=== PATIENT | male | born 1950 | race Caucasian/White ===

== ENCOUNTER 2024-08-02 12:36 | Outpatient (CLI) | payer MEDICARE, SELFPAY ==
[2024-08-02 12:55] LABS: Basophils Absolute Auto 0.07 K/mm3 (0.00-0.10); Basophils Percent Auto 0.7 % (0.0-1.0); Eosinophils Absolute Auto 0.11 K/mm3 (0.02-0.50); Eosinophils Percent Auto 1.1 % (1.0-6.0); Hematocrit 46.7 % (37.0-46.0); Hemoglobin 16.7 g/dL (12.4-15.3); Immature Granulocyte Absolute 0.04 K/mm3 (0.00-0.00); Immature Granulocyte Percent A 0.4 % (0.0-0.0); Lymphocytes Absolute Auto 1.53 K/mm3 (1.10-4.50); Lymphocytes Percent Auto 14.9 % (18.0-42.0); Mean Corpuscular HGB Conc 35.8 g/dL (32-36); Mean Corpuscular Volume 95.1 fL (78.0-102.0); Mean Platelet Volume 9.4 fl (8.7-11.0); Monocytes Absolute Auto 0.78 K/mm3 (0.10-0.90); Monocytes Percent Auto 7.6 % (2.0-11.0); Neutrophils Absolute Auto 7.72 K/mm3 (1.70-7.20); Neutrophils Percent Auto 75.3 % (50.0-70.0); Platelet Count Result 257 K/mm3 (150-420); Red Blood Count 4.91 M/mm3 (4.70-6.10); Red Cell Distribution Width 13.2 % (11.6-14.4); White Blood Count 10.3 K/mm3 (4.8-10.8)
[2024-08-02 13:03] LABS: Hemoglobin A1C 5.4 % (<5.7)
[2024-08-02 13:44] LABS: Alanine Aminotransferase 46 U/L (16-63); Albumin Level 3.8 g/dL (3.4-5.0); Alkaline Phosphatase 100 U/L (46-116); Anion Gap 6 mmol/L (4-12); Aspartate Amino Transferase 25 U/L (15-37); Bilirubin,Total 2.3 mg/dL (0.00-1.00); Blood Urea Nitrogen 13 mg/dL (7-18); Calcium 8.7 mg/dL (8.5-10.1); Carbon Dioxide 31 mmol/L (21-32); Chloride 100 mmol/L (98-108); Cholesterol 157 mg/dL (0-200); Estimated Glomerular Filt Rate > 60; Glucose 92 mg/dL (70-99); Osmolality Calculated 284 mOsm/kg (285-295); Potassium 4.7 mmol/L (3.5-5.1); Sodium 137 mmol/L (136-145); Thyroid Stimulating Hormone 2.65 uIU/mL (0.36-3.74); Total Protein 6.8 g/dL (6.4-8.2); Triglycerides 60 mg/dL (0-150)
[2024-08-02 13:55] LABS: HDL Direct 43 mg/dL (40-60); LDL Cholesterol Calculated 102 mg/dL (<130)
[2024-08-02 16:30] LABS: Add Urine Microscopic? NO; Appearance Urine Clear (Clear); Bilirubin Urine Negative (Negative); Blood Urine Negative (Negative); Color Urine Yellow (Yellow); Glucose Urine UA Negative (Negative); Ketones Urine Negative (Negative); Leukocyte Esterase Ur Negative (Negative); Nitrate Urine Negative (Negative); Protein Urine Negative (Negative); Specific Grav Ur >= 1.030 (1.010-1.020); Urobilinogen Urine 0.2 mg/dL (0.2-1.0)
[2024-08-02 16:51] LABS: Prostate Specific Antigen < 0.1 ng/mL (< OR = 4.0)
== END 2024-08-02 12:37 | disposition home or self-care (01) ==
PROVIDERS: PCP Family Medicine; Visit Provider Family Medicine
DX: R35.1 Nocturia (principal); Z80.52 Family history of malignant neoplasm of bladder; R73.09 Other abnormal glucose; E78.5 Hyperlipidemia, unspecified; Z12.5 Encounter for screening for malignant neoplasm of prostate
CPT/HCPCS: 36415; 80053; 80061; 81003; 83036; 84153; 84443; 85025; G0103

== ENCOUNTER 2024-08-09 09:18 | Outpatient (CLI) | payer MEDICARE, SELFPAY ==
[2024-08-09 09:31] LABS: Basophils Absolute Auto 0.09 K/mm3 (0.00-0.10); Basophils Percent Auto 1.7 % (0.0-1.0); Eosinophils Absolute Auto 0.14 K/mm3 (0.02-0.50); Eosinophils Percent Auto 2.6 % (1.0-6.0); Hemoglobin 16.1 g/dL (12.4-15.3); Immature Granulocyte Absolute 0.02 K/mm3 (0.00-0.00); Immature Granulocyte Percent A 0.4 % (0.0-0.0); Immature Reticulocyte Fraction 8.2 % (2.0-16.52); Lymphocytes Absolute Auto 1.37 K/mm3 (1.10-4.50); Lymphocytes Percent Auto 25.7 % (18.0-42.0); Mean Corpuscular Hemoglobin 32.9 pg (27.0-31.0); Mean Corpuscular Volume 94.1 fL (78.0-102.0); Mean Platelet Volume 9.4 fl (8.7-11.0); Monocytes Absolute Auto 0.48 K/mm3 (0.10-0.90); Neutrophils Absolute Auto 3.23 K/mm3 (1.70-7.20); Neutrophils Percent Auto 60.6 % (50.0-70.0); Platelet Count Result 252 K/mm3 (150-420); Red Blood Count 4.89 M/mm3 (4.70-6.10); Red Cell Distribution Width 12.7 % (11.6-14.4); Reticulocyte Hemoglobin Conten 37.7 pg (28.0-35.0); Reticulocytes Absolute 0.07 M/mm3 (0.02-0.10); White Blood Count 5.3 K/mm3 (4.8-10.8)
[2024-08-09 11:06] LABS: Alanine Aminotransferase 26 U/L (16-63); Albumin Level 3.6 g/dL (3.4-5.0); Alkaline Phosphatase 98 U/L (46-116); Aspartate Amino Transferase 14 U/L (15-37); Bilirubin Direct 0.2 mg/dL (0-0.2); Bilirubin,Total 1.4 mg/dL (0.00-1.00); Total Protein 7.2 g/dL (6.4-8.2)
== END 2024-08-09 09:19 | disposition home or self-care (01) ==
LOC: CHSLAB 09:19
PROVIDERS: PCP Family Medicine; Visit Provider Family Medicine
DX: E80.6 Other disorders of bilirubin metabolism (principal)
CPT/HCPCS: 36415; 80076; 85025; 85046

== ENCOUNTER 2025-08-17 13:37 | Emergency (ER) | payer MEDICARE, SELFPAY ==
--- OUTSIDE RECORDS SUMMARY | 2024-12-17 09:30 | XMS_ITS ---
Author Organization [facility] Billing Info Address [address] [facility] [place] [address] Care Team Providers Care Welder Fabricator Name Role Phone TAYA JONES Primary Care Provider ALEN NGUYEN Unavailable [phone] Allergies No Known Allergies REASON FOR VISIT shredded filler hopper feeder to establish - just getting established Medications Medication SIG (Take, Route, Frequency, Duration) Notes Start Date End Date Status Dutasteride 0.5 MG 1 capsule Orally Onc e a day Active Atorvastatin Calcium 20 MG 1 tablet Oral ly Once a day Active Lisinopril 5 MG 2 tablets Orally Onc e a day Active Social History Tobacco Use: Social History Observation Description Date Details (start date - stop date) Never Smoker NA - NA Tobacco Status: Question Answer Notes Patient is a never smoker non tobacco user Problems Problem Type SNOMED Code ICD Code Onset Dates Problem Status W/U Status Risk Notes Problem [id number] Primary hypertension (I10) Active confirmed Problem [id number] Benign prostatic hyperplasia with lower urinary tract symptoms (N40.1) Active confirmed Problem 554919883 Nocturia (R35.1) Active confirmed Problem [id number] Dyslipidemia (E78.5) Active confirmed Vital Signs Height 70 in 12/17/2024 Weight 195 lbs 12/17/2024 BMI 27.98 kg/m2 12/17/2024 Blood pressure systolic 110 mm Hg 12/17/19 25 Blood pressure diastolic 70 mm Hg 025 Temperature 97.8 degrees Fahrenheit 12/17/19 25 Heart Rate 84 /min 12/17/2024 Respiratory Rate 18 /min 12/17/2024 Oximetry 95 12/17/2024 Encounters Encounter Location Date Provider Diagnosis [id number] [address] [place], [place] [id number] 12/17/2024 ALEN NGUYEN Essential hypertension I10 ; Skin lesion L98.9 ; Dyslipidemia E78.5 ; Nocturia R35.1 ; Benign prostatic hyperplasia with lower urinary tract symptoms N40.1 ; Decreased hearing of both ears H91.93 ; Wears hearing aid Z97.4 and Overweight (BMI 25.0-29.9) E66.3 Assessments Encounter Date Diagnosis (ICD Code) Assessment Notes Treatment Notes Treatment Clinical Notes Section Notes 12/17/2024 Essential hypertension (ICD-10 - I10) At the time of evaluation patient is hemodynamically stable. Patient advised to consume a low-salt diet, exercise, limit red meat intake, deli meats, and eat home cookd meals. Patient also encouraged to check home blood pressure values and contact the office if persistently elevated. Continue home medication lisinopril 5mg 1 tab PO daily 12/17/2024 Skin lesion (ICD-10 - L98.9) Clinical exam revealed multiple 3 mm X 3 mm light brown macules on forehead. He states he follows with a machine operator helper in [place] and has been undergoing cryo therapy for removal. He states he removes about 10-15 macules/papules. Patient recommended to continue following up with machine operator helper and if required referral may be sent to a local machine operator helper. Patient stated he will follow-up with a machine operator helper locally and will contact the machine operator helper office on his own. 12/17/2024 Dyslipidemia (ICD-10 - E78.5) Patient states he underwent lipid panel and 2023 which was found to be unremarkable.Patien t to continue current management with atorvastatin. Follow-up annual labs. Records request was sent to his doctor in [place]. Patient signed necessary documents. 12/17/2024 Nocturia (ICD-10 - R35.1) Symptoms well-managed on current medication. Will continue to monitor 12/17/2024 Benign prostatic hyperplasia with lower urinary tract symptoms (ICD-10 - N40.1) Patient stated his nausea symptoms with managed adequately with current medication. Patient to continue home medication. 12/17/2024 Decreased hearing of both ears (ICD-10 - H91.93) Patient stated he has had been followed for decreased hearing acuity by [facility]. He has been using hearing aids for the past 5 years without difficulty. Will continue to monitor. 12/17/2024 Wears hearing aid (ICD-10 - Z97.4) Patient did not bring hearing aids to visit. He states he uses only as needed for special occasions. Otherwise his hearing is quite stable. Will continue to monitor. 12/17/2024 Overweight (BMI 25.0-29.9) (ICD-10 - E66.3) Healthy balanced diet is recommended, avoid processed carbohydrates and fried meals, avoid sodas. Exercise regularly at least 3 times a week as tolerable. Will continue to monitor with annual checks Plan Of Treatment Treatment Notes Assessment Notes Essential hypertension At the time of evaluation patient is hemodynamically stable. Patient advised to consume a low-salt diet, exercise, limit red meat intake, deli meats, and eat home cookd meals. Patient also encouraged to check home blood pressure values and contact the office if persistently elevated. Continue home medication lisinopril 5mg 1 tab PO daily Skin lesion Clinical exam reveal ed multiple 3 mm X 3 mm light brown macules on forehead. He states he follows with a machine operator helper in [place] and has been undergoing cryo therapy for removal. He states he removes about 10-15 macules/papules. Patient recommended to continue following up with machine operator helper and if required referral may be sent to a local machine operator helper. Patient stated he will follow-up with a machine operator helper locally and will contact the machine operator helper office on his own. Dyslipidemia Patient states he un derwent lipid panel and 2023 which was found to be unremarkable.Patient to continue current management with atorvastatin. Follow-up annual labs. Records request was sent to his doctor in [place]. Patient signed necessary documents. Nocturia Symptoms well-manage d on current medication. Will continue to monitor Benign prostatic hyperplasia with lower urinary tract symptoms Patient stated his nausea symptoms with managed adequately with current medication. Patient to continue home medication. Decreased hearing of both ears Patient s tated he has had been followed for decreased hearing acuity by [facility]. He has been using hearing aids for the past 5 years without difficulty. Will continue to monitor. Wears hearing aid Patient did not brin g hearing aids to visit. He states he uses only as needed for special occasions. Otherwise his hearing is quite stable. Will continue to monitor. Overweight (BMI 25.0-29.9) Healthy fabiola chiquis diet is recommended, avoid processed carbohydrates and fried meals, avoid sodas. Exercise regularly at least 3 times a week as tolerable. Will continue to monitor with annual checks Next Appt Details Follow Up: 1 year, Reason: Provider Name:DEDE LOUIE , 01/06/2026 10:00:00 AM, [address], [place], [place], [id number], Procedure Notes * Category Sub-Category Detail Notes Supervision of Care Documentation of Supervision Patient seen and examined with resident, MARITZA AGUSTIN 12/17/2024 03:18:42 PM EST > Supervising Provider I have met with the patient and participated with the plan of care., MARITZA AGUSTIN 12/17/2024 03:18:47 PM EST > Preceptor Notes ALEN NGUYEN 12/17/2024 03:46:05 PM EST >, Patient seen by me and presented to attending listed above Progress Notes * Chinmay IYERDOB:1950 (74 yo M)Acc No.[id number]:12/17/2024 PROGRESS NOTE Patient: Chinmay IYER Appointment Provider: Mikie NGUYEN MD :1950 A ge:74 Y S ex:Male Supervising Provider:MARITZA AGUSTIN MD Date:12/17/2024 C #:[id number] Address:[address] [place] [address], [facility] Pcp:TAYA JONES Subjective: * Chief Complaints: * N p to establish - just getting established * HPI: F irst Point of Contact Screening: Do any of the following apply to you? N ew rash or open sores N o F ever and/or chills in the past 7 days N o C ough N o M uscle or body aches (other than from an injury) N o S ore throat N o I n the past 3 weeks, have you or a close contact traveled outside the [facility] and you are now ill? N o 74-year-old male with a past medical history hypertension, hyperlipidemia, decreased hearing acuity requiring hearing aids bilaterally and BPH presents to establish care in our clinic today. He states his primary care provider is Dr. Andrew Thompson in [place], [place]. He states he splits his time between both dates. He has been living in the [facility] for the past 9 years and states he wants to establish care locally. At the time of evaluation he endorses no complaints. He states he does have a history of recurrent skin lesions primarily on the forehead that requires removal. He follows with a machine operator helper in [place] but does not know the provider's name. He stated he undergoes a type of cryotherapy for removal. He had a colonoscopy last year that was found to be within normal limits. The patient stated he is up-to-date with all his vaccinations including the flu vaccin, pneumococcal vaccine, and shingles vaccine. Records request was signed and will be sent to his primary care provider. He states he has a blood pressure monitoring cuff at home but has not used it in the past year. D epression Screening: PHQ-2 (2015 Edition) L ittle interest or pleasure in doing things??Not at all F eeling down, depressed, or hopeless? N ot at all T otal Score 0 * ROS: G eneral ROS: Constitutional: N o fever, weight changes, or fatigue. Patient denies feeling unwell. D ermatology/Integumentary: N o rashes, lesions, or itching. H EENT: B rown lesions on forehead. No headaches or head injuries. No vision changes, pain, or discharge. . R nichole/Pulmonology: N o cough, shortness of breath, or wheezing. C ardiology: N o chest pain, palpitations, edema, or claudication. G astroenterology: N o abdominal pain, nausea, vomiting, diarrhea, constipation, or dysphagia. G enital/Urinary: N o dysuria, hematuria, frequency, urgency, or incontinence. M usculoskeletal: N o joint pain, stiffness, swelling, or muscle pain. N eurology: N o headaches, dizziness, numbness, tingling, or seizures. P sychology: N o depression, anxiety, insomnia, or changes in mood. H em/Lymph: N o easy bruising or lymphadenopathy. E ndocrinology: N o heat or cold intolerance, polyuria, or polydipsia. I mmunologic: N o allergies or frequent infections reported. ? * Medical History: * Surgical History: G allbladder 1979Right Elbow - broken 1954 * Hospitalization/Major Diagno stic Procedure: D enies Past Hospitalization * Family History: M other: , head injury due to a fall. F ather: , bladder cancer. no family hx of colon cancer. * Social History: A lcohol Use Patient d oes not use alcohol T obacco Status Patient is a never smoker non tobacco user * Medications: T akingAtorvastatin Calcium 20 MG Tablet 1 tablet Orally Once a day Dutasteride 0.5 MG Capsule 1 capsule Orally Once a day Lisinopril 5 MG Tablet 2 tablets Orally Once a day Medication List reviewed and reconciled with the patientTaking Atorvastatin Calcium 20 MG Tablet 1 tablet Orally Once a day Taking Dutasteride 0.5 MG Capsule 1 capsule Orally Once a day Taking Lisinopril 5 MG Tablet 2 tablets Orally Once a day Medication List reviewed and reconciled with the patient * Allergies: N .K.A.no[Allergies Verified] Objective: * Vitals: H t: 70 in, Ht-cm: 177.8 cm, Wt: 195 lbs, Wt-k.45 kg, BMI:27.98, Body Surface Area: 2.09, BP:110/70, Temp:97.8F, HR:84, Respiratory Rate:18, Oxygen sat %:95, Pain scale: 0. * Examination: G eneral Examination: Constitutional: a lert, NAD, pleasant, well developed and well nourished, cooperative . Derm/Integumentary: n ormal, no rash. HEENT: u nremarkable. Neck: s upple, no lymphadenopathy. Respiratory: c lear to auscultation bilaterally, no wheezes/rhonchi/rales. Heart: n o murmurs, regular rate and rhythm. Chest: n ormal shape and expansion. Gastrointestinal: n o masses palpated, no hepatosplenomegaly. Rectal: n o tenderness, no masses, normal sphincter tone, normal prostate. Musculoskeletal: n ormal, no edema, cyanosis, clubbing.? Face: L ight brown-colored 3 mm X 3 mm macules on forehead.? Joints: n o significant abnormalities noted. ? Assessment: * Assessment: 1. E ssential hypertension - I10 (Primary) 2 . S kin lesion - L98.9 ? 3 . D yslipidemia - E78.5 4 . N octuria - R35.1 5 .?Benign prostatic hyperplasia with lower urinary tract symptoms - N40.1 6 . Decreased hearing of both ears - H91.93 7 . W ears hearing aid - Z97.4 ? 8 . O verweight (BMI 25.0-29.9) - E66.3 Plan: * Treatment: 2. S kin lesion Notes: Clinical exam revealed multiple 3 mm X 3 mm light brown macules on forehead. He states he follows with a machine operator helper in [place] and has been undergoing cryo therapy for removal. He states he removes about 10-15 macules/papules. Patient recommended to continue following up with machine operator helper and if required referral may be sent to a local machine operator helper. Patient stated he will follow-up with a machine operator helper locally and will contact the machine operator helper office on his own. 3. D yslipidemia Notes: Patient states he underwent lipid panel and 2023 which was found to be unremarkable.Patient to continue current management with atorvastatin. Follow-up annual labs. Records request was sent to his doctor in [place]. Patient signed necessary documents. 4. N octuria Notes: Symptoms well-managed on current medication. Will continue to monitor 5. B enign prostatic hyperplasia with lower urinary tract symptoms Notes: Patient stated his nausea symptoms with managed adequately with current medication. Patient to continue home medication. 6. D ecreased hearing of both ears Notes: Patient stated he has had been followed for decreased hearing acuity by primary [place]. He has been using hearing aids for the past 5 years without difficulty. Will continue to monitor. 7. W ears hearing aid Notes: Patient did not bring hearing aids to visit. He states he uses only as needed for special occasions. Otherwise his hearing is quite stable. Will continue to monitor. 8. O verweight (BMI 25.0-29.9) Notes: Healthy balanced diet is recommended, avoid processed carbohydrates and fried meals, avoid sodas. Exercise regularly at least 3 times a week as tolerable. Will continue to monitor with annual checks * Procedures: S upervision of Care: Documentation of Supervision P atient seen and examined with resident, MARITZA AGUSTIN 12/17/2024 03:18:42 PM EST >. Supervising Provider I have met with the patient and participated with the plan of care., MARITZA AGUSTIN 12/17/2024 03:18:47 PM EST >. Preceptor Notes B ALEN REYNOSO 12/17/2024 03:46:05 PM EST >, Patient seen by me and presented to attending listed above. * Procedure Codes: 1 126F AMNT PAIN NOTED NONE [id number] STATUS [id number] MED LIST DOCD IN RCRD * Preventive Medicine: Laurel Bloomery PAF (Patient Assessment Form): F all Risk Assessment Date Screening Completed: 0 12/17/2024 Increased Fall Risk factors: N o fall risk factors History Falls in Past Year: N o falls in the past year A mbulatory Status Patient: i s independent C olorectal Cancer Screening (45-75 y/o) Colonoscopy Date (Every 10 years): 0 06/06/2024 no polyps D epression Screening PHQ 2 Smart Form: C ompleted I mmunizations Influenza Vaccine: 1 11/25/2023 Quality Measures: W eight Assessment Above Normal BMI Follow-Up L ifestyle education regarding diet * Follow Up: 1 year * Care Plan Details* Review Notes: MARITZA AGUSTIN 2024-12-25 14:37:14* Sign off status: Completed true * Appointment Provider: Mikie NGUYEN MD Date: 0 12/17/2024 Generated for Printing/Faxing/eTransmitting on: 1 03:05 PM EDT History and Physical Notes * HPI (History of Present Illness) Category Sub-Category Detail Notes Category Not es Depression Screening PHQ-2 (2015 Edition) Little interest or pleasure in doing things?: Not at all Feeling down, depressed, or hopeless?: N ot at all Total Score: 0 First Point of Contact Screening Do any of the following apply to you? New rash or open sores: No 74-year-old male with a past medical history hypertension, hyperlipidemia, decreased hearing acuity requiring hearing aids bilaterally and BPH presents to establish care in our clinic today. He states his primary care provider is Dr. Andrew Thompson in [place], [place]. He states he splits his time between both dates. He has been living in the [facility] for the past 9 years and states he wants to establish care locally. At the time of evaluation he endorses no complaints. He states he does have a history of recurrent skin lesions primarily on the forehead that requires removal. He follows with a machine operator helper in [place] but does not know the provider's name. He stated he undergoes a type of cryotherapy for removal. He had a colonoscopy last year that was found to be within normal limits. The patient stated he is up-to-date with all his vaccinations including the flu vaccin, pneumococcal vaccine, and shingles vaccine. Records request was signed and will be sent to his primary care provider. He states he has a blood pressure monitoring cuff at home but has not used it in the past year. Fever and/or chills in the past 7 days: No Cough: No Muscle or body aches (other than from an injury): No Sore throat: No In the past 3 weeks, have yo u or a close contact traveled outside the [facility] and you are now ill? : No Examination Category Sub-Category Detail Notes Category Not es General Examination HEENT: unremarkable Neck: supple, no lymphaden opathy Heart: no murmurs, regular rate and rhythm Respiratory: clear to auscultatio n bilaterally, no wheezes/rhonchi/rales Gastrointestinal: no masses palpated, no hepatosplenomegaly Constitutional: alert, NAD, pleasant , well developed and well nourished, cooperative Derm/Integumentary: normal, no rash Chest: normal shape and exp ansion Musculoskeletal: normal, no edema, cy anosis, clubbing Rectal: no tenderness, no ma sses, normal sphincter tone, normal prostate Face: Light brown-colored 3 mm X 3 mm macules on forehead Joints: no significant abnor malities noted
--- NOTE | ~2025-08-17 | CT_ITS ---
EXAMINATION: CT abdomen pelvis wo con, 08/17/2025 14:00 CDT HISTORY: left flank pain x1 hour COMPARISON: No comparisons available. TECHNIQUE: CT scan of the abdomen and pelvis was performed without IV contrast. One or more of the following dose reduction techniques were used: automated exposure control, adjustment of the mA and/or kV according to patient size, use of iterative reconstruction technique. Unless otherwise stated, incidental findings do not require dedicated follow up imaging FINDINGS: CT abdomen: LUNG BASES: The lung bases are clear. The visualized portions of the heart and pericardium are unremarkable. LIVER: Unremarkable, liver contours intact, no lesions. SPLEEN: Unremarkable, no splenomegaly. KIDNEYS: Right Kidney: Unremarkable. No calculi. No hydronephrosis. Left Kidney: Left kidney left hydronephrosis and hydroureter due to an obstructing proximal ureteral calculus measuring 2 x 4 x 4 mm. ADRENAL GLANDS: Unremarkable. PANCREAS: Unremarkable. GALLBLADDER/BILIARY: Post cholecystectomy. STOMACH AND ESOPHAGUS: Visualized stomach and esophagus within normal limits. BOWEL/MESENTERY: Moderate fecal content. Moderate diverticulosis. No colitis or acute diverticulitis. Appendix normal. Mesentery normal. Small bowel normal. ADENOPATHY/RETROPERITONEUM: No lymphadenopathy. AORTA/VASCULATURE: Normal caliber aorta. FREE FLUID OR FREE AIR: None. CT pelvis: SOLID ORGANS/REPRODUCTIVE: Unremarkable. BLADDER: Within normal limits. OSSEOUS STRUCTURES: No acute osseous abnormality.No suspicious lesions. OVERLYING SOFT TISSUES: Unremarkable. IMPRESSION: 1. Left-sided obstructive uropathy Reviewed, dictated and finalized at location P.
[2025-08-17 13:37] VITALS: BP 122/86; PULSE 80; RESP 20; TEMP 36.7; O2SAT 99
--- NOTE | 2025-08-17 13:42 | ED_ITS ---
HPI - Abdominal Pain General Chief Complaint: Urogenital-Male Stated Complaint: left flank pain Time Seen by Provider: 08/17/25 13:42 Source: patient Mode of arrival: ambulatory Limitations: no limitations History of Present Illness HPI narrative: Patient is a 74-year-old male with left flank pain that had about a 1 hour period of severe pain in the left flank that has resolved at this time. Associated nausea without vomiting. He was headed to go hargilling and came back due to the pain. He had kidney stones 15 years ago in the past. MD elicited complaint: flank pain (Left) Pertinent past history: kidney stones Onset (ago): hour(s) (1) Pain Consistency: constant and now resolved Location: L flank Severity: moderate Pain scale (0-10): 7 Quality: cramping, stabbing and sharp Radiation: none Migration to: no migration Exacerbating factors: nothing Relieving factors: nothing Context: confirms history of similar episodes Associated symptoms: nausea Treatments prior to arrival: other (None) Related Data Allergies Allergy/AdvReac Type Severity Reaction Status Date / Time No Known Allergies Allergy Verified 08/17/25 14:41 Review of Systems 2 Review of Systems: All systems reviewed & are unremarkable except as noted in HPI and below Constitutional: Constitutional: Reports no additional constitutional complaints Eyes: Eyes: Reports no additional eye complaints ENT: Reports system reviewed and no additional complaints, except as documented Cardiovascular: Cardiovascular: Reports no additional cardiovascular complaints Respiratory: Respiratory: Reports no additional respiratory complaints Gastrointestinal: Gastrointestinal: Reports no additional gastrointestinal complaints Genitourinary: Genitourinary: Reports no additional male genitourinary complaints Musculoskeletal: Musculoskeletal: Reports no additional musculoskeletal complaints Integumentary/Breasts: Skin/Breast: Reports system reviewed and no additional complaints, except as docu Neurologic: Reports system reviewed and no additional complaints, except as documented Psychiatric: Psychiatric: Reports no additional psychiatric complaints Endocrine: Endocrine: Reports no additional endocrine complaints Hematologic/Lymphatic: Hematologic/Lymphatic: Reports no additional hematologic/lymphatic complaints Allergic/Immunologic: Allergic/Immunologic: Reports no additional allergic/immunologic complaints PMFSH Social History Social History Smoking status: Never smoker Exam 2 Const: General: healthy appearing Nutritional Appearance: well nourished Orientation/consciousness: patient oriented x3 HENMT: Head: normal to inspection Ears: external ears normal F ken/Nose/Sinus: Normal external nose present Eyes: Conjunctivae: conjunctivae normal Pupils: Equal, round and reactive pupils present EOM: EOMs intact bilaterally Neck: Neck: normal visual inspection Chest: Chest palpation & inspection: normal inspection of the chest Resp: Effort & Inspection: normal respiratory effort and not labored A uscultation: clear to auscultation bilaterally and no crackles Cardio: Rate: regular rate Rhythm: regular rhythm Heart sounds: no murmurs GI: Inspection: non-distended GI Palp: Yes Soft to palpation and No Tenderness to palpation present (GI) Auscultation: normal bowel sounds : General: Yes bladder normal to palpation Back/Spine/Pelvis: Back: no CVA tenderness Skin: General skin exam: normal color Rashes: no rashes Wounds: no wounds Neuro: General: patient oriented x3, moves all extremities and no meningeal signs Extrem: General: normal to inspection Psych: Mental Status: mental status grossly normal Affect: normal affect Attitude: cooperative Course Vital Signs Vital signs: Vital Signs Temperature 36.7 C 08/17/25 13:37 Pulse Rate 80 08/17/25 13:37 Respiratory Rate 20 08/17/25 13:37 Blood Pressure 122/86 08/17/25 13:37 Pulse Oximetry 99 08/17/25 13:37 Oxygen Delivery Room Air 08/17/25 13:37 Temperature 36.7 C 08/17/25 13:37 Pulse Rate 74 08/17/25 15:16 Respiratory Rate 20 08/17/25 15:16 Blood Pressure 129/87 08/17/25 15:16 Pulse Oximetry 99 08/17/25 15:16 Oxygen Delivery Room Air 08/17/25 15:16 MDM - Abdominal Pain MDM Narrative Medical decision making narrative: Patient is a 74-year-old male with left flank pain for the past hour and it is now resolved. We will do a kidney stone workup. Patient is obstructed kidney stone on the left and he wishes to get this repaired at this time. Urology agrees. We will transfer patient [facility]. Patient wishes to go POV and that is acceptable at this time. Patient is safe for POV. Lab Data Attestation: I reviewed the patient's lab results. 08/17/25 14:12 08/17/25 14:12 Labs: Lab Results 08/17/25 08/17/25 Range/Units 13:57 14:12 WBC 6.2 (4.8-10.8) K/mm3 RBC 4.71 (4.70-6.10) M/mm3 Hgb 15.8 H (12.4-15.3) g/dL Hct 45.0 (37.0-46.0) % MCV 95.5 (78.0-102.0) fL MCH 33.5 H (27.0-31.0) pg MCHC 35.1 (32-36) g/dL RDW 12.9 (11.6-14.4) % Plt Count 219 (150-420) K/mm3 MPV 9.5 (8.7-11.0) fl Immature Gran % (Auto) 0.3 H (0.0-0.0) % Neut % (Auto) 64.1 (50.0-70.0) % Lymph % (Auto) 22.9 (18.0-42.0) % [place] % (Auto) 10.3 (2.0-11.0) % Eos % (Auto) 1.1 (1.0-6.0) % Baso % (Auto) 1.3 H (0.0-1.0) % Lymph # (Auto) 1.42 (1.10-4.50) K/mm3 [place] # (Auto) 0.64 (0.10-0.90) K/mm3 Eos # (Auto) 0.07 (0.02-0.50) K/mm3 Baso # (Auto) 0.08 (0.00-0.10) K/mm3 Abs Immat Gran (auto) 0.02 H (0.00-0.00) K/mm3 Absolute Neuts (auto) 3.97 (1.70-7.20) K/mm3 Absolute Nucleated RBC 0.00 (0.00-0.00) K/mm3 Nucleated RBC % 0.0 (0-0.0) % PT 11.4 (9.50-12.1) Seconds INR 1.0 APTT 24.5 (23.9-30.70) Sec Sodium 138 (137-145) mmol/L Potassium 4.4 (3.4-5.0) mmol/L Chloride 101 (98-107) mmol/L Carbon Dioxide 30 (22-30) mmol/L Anion Gap 7 (4-12) mmol/L BUN 12 (9-20) mg/dL Creatinine 0.90 (0.7-1.3) mg/dL Estim Creat Clear Calc 65 ml/min Estimated GFR > 60 (59 - ) Glucose 107 (65-110) mg/dL Calculated Osmolality 285 (285-295) mOsm/kg Calcium 9.1 (8.4-10.2) mg/dL Total Bilirubin 1.8 H (0.2-1.3) mg/dL AST 27 (17-59) U/L ALT 22 (6-50) U/L Alkaline Phosphatase 62 (38-126) U/L Total Protein 7.7 (6.3-8.2) g/dL Albumin 4.3 (3.5-5.1) g/dL Lipase 53 (23-300) U/L Urine Color Yellow (Yellow) Urine Appearance Clear (Clear) Urine pH 5.5 (5.0-8.0) Ur Specific [place] 1.025 H (1.010-1.020) Urine Protein Trace H (Negative) Urine Glucose (UA) Negative (Negative) Urine Ketones Trace H (Negative) Ur Blood (Man) 3+ H (Negative) Urine Nitrate Negative (Negative) Urine Bilirubin Negative (Negative) Urine Urobilinogen 1.0 (0.2-1.0) mg/dL Leukocyte Esterase Rfl Negative (Negative) MADISYN/UL Urine RBC 21-50 H (0-2) /hpf Urine WBC 0-3 (0-3) /hpf Urine Bacteria Trace (None) /hpf Urine Mucus Few H /lpf Imaging Data Attestation: I personally reviewed and interpreted this imaging study as follows: Radiologist's impression: ITS Impressions Abdomen/Pelvis CT 08/17/25 14:27 IMPRESSION: 1. Left-sided obstructive uropathy Discharge Plan Discharge Clinical Impression: Left ureteral calculus Patient Disposition: Acute Care Hospital Condition: Stable Patient Language: Sinhala Prescriptions: No Action diphenoxylate-atropine [Lomotil] 2.5-0.025 mg tablet 1 tablet PO QID PRN (Reason: diarrhea) Qty: 10 0RF tamsulosin 0.4 mg capsule 0.4 mg PO DAILY Qty: 90 0RF dutasteride 0.5 mg capsule See Rx Instructions .ROUTE .COMPLEX Qty: 30 0RF Dose Instruction: Take 1 capsule by mouth once daily Rx Instructions: Take 1 capsule by mouth once daily lisinopril 5 mg tablet See Rx Instructions .ROUTE .COMPLEX Qty: 30 0RF Dose Instruction: Take 1 tablet by mouth once daily Rx Instructions: Take 1 tablet by mouth once daily atorvastatin 20 mg tablet See Rx Instructions .ROUTE .COMPLEX Qty: 30 0RF Dose Instruction: Take 1 tablet by mouth once daily Rx Instructions: Take 1 tablet by mouth once daily Follow-up/Referrals: Chaya Cormier MD [Primary Care Provider, Internal Medicine] Time of Disposition: 15:23
[2025-08-17 14:03] LABS: Add Urine Microscopic? YES; Appearance Urine Clear (Clear); Glucose Urine UA Negative (Negative); Leukocyte Esterase Ur Negative LEU/UL (Negative); Nitrate Urine Negative (Negative); Specific Grav Ur 1.025 (1.010-1.020)
--- OUTSIDE RECORDS SUMMARY | 2025-08-17 14:06 | XMS_ITS | Patient Health Record ---
Author Organization [facility] Billing Info Address [address] [place] [address] [place] [address] Care Team Providers Care Rack Washer Name Role Phone TAYA JONES Primary Care Provider PATRICK, SUSHY Unavailable [phone] Allergies No Known Allergies Reason For Referral No Information Medications Medication SIG (Take, Route, Frequency, Duration) Notes Start Date End Date Status Dutasteride 0.5 MG 1 capsule Orally Onc e a day Active Atorvastatin Calcium 20 MG 1 tablet Oral ly Once a day Active Lisinopril 5 MG 2 tablets Orally Onc e a day Active Immunizations Vaccine Route Administration Date Status Comme nts zCOVID-19 (Moderna) 12+yrs, NO PRES Unknown 11/20/2020 Administered zCOVID-19 (Moderna) 12+yrs, NO PRES Unknown 12/18/2020 Administered FLU 3V (FLUAD TRI), 65yrs+, NO PRES - ALL PAYORS Unknown 09/24/2024 Administered Social History Tobacco Use: Social History Observation Description Date Details (start date - stop date) Never Smoker NA - NA Tobacco Status: Question Answer Notes Patient is a never smoker non tobacco user Problems Problem Type SNOMED Code ICD Code Onset Dates Problem Status W/U Status Risk Notes Problem 201439435 Nocturia (R35.1) Active confirmed Problem 6854437363892 Benign prostatic hyperplasia with lower urinary tract symptoms (N40.1) Active confirmed Problem 540266734 Dyslipidemia (E78.5) Active confirmed Problem 26035269 Primary hypertension (I10) Active confirmed Vital Signs Heart Rate 84 /min 12/17/2024 Temperature 97.8 degrees Fahrenheit 12/17/2024 Respiratory Rate 18 /min 12/17/2024 Oximetry 95 12/17/2024 Blood pressure diastolic 70 mm Hg 12/17/2024 Height 70 in 12/17/2024 Blood pressure systolic 110 mm Hg 12/17/2024 Weight 195 lbs 12/17/2024 BMI 27.98 kg/m2 12/17/2024 Encounters Encounter Location Date Provider Diagnosis [id number] [address] [place], [place] [id number] 12/17/2024 ALEN NGUYEN Essential hypertension I10 ; [...] forehead. He states he follows with a dough cutter in [place] and has been undergoing cryo therapy for removal. He states he removes about 10-15 macules/papules. Patient recommended to continue following up with dough cutter and if required referral may be sent to a local dough cutter. Patient stated he will follow-up with a dough cutter locally and will contact the dough cutter office on his own. 12/17/2024 Dyslipidemia (ICD-10 - E78.5) Patient states he underwent lipid panel and 2023 which was found to be unremarkable.Patien t to continue current management with atorvastatin. Follow-up annual labs. Records request was sent to his doctor in [place]. Patient signed necessary documents. 12/17/2024 Nocturia (ICD-10 [...] followed for decreased hearing acuity by primary [place]. He has been using hearing aids for [...] monitor with annual checks Plan Of Treatment Next Appt Details Provider Name:DEDE LOUIE , 01/06/2026 10:00:00 AM, [address], [address], [place], [place], [id number], Insurance Providers Payer Name Payer Address Payer Phone Subscriber Number Group Number Insured Name Patient Relationship to Insured Coverage Start Date Coverage End Date MEDICARE [place] PART B [address] [facility] [place] RIKKI CULP [id number] Chinmay Hogue Self - patient is the insured [facility] MEDICARE [facility] [place] [address] [place], [place] [id number] Chinmay Hogue Self - patient is the insured Medical (General) History Medical History History ICD Code Hypertension Hyperlipidemia BPH Surgical History Surgery Date(Month/Year) Right Elbow - broken 1954 Gallbladder 1979
[2025-08-17 14:17] LABS: Hematocrit 45.0 % (37.0-46.0); Hemoglobin 15.8 g/dL (12.4-15.3); Immature Granulocyte Percent A 0.3 % (0.0-0.0); Lymphocytes Absolute Auto 1.42 K/mm3 (1.10-4.50); Mean Corpuscular HGB Conc 35.1 g/dL (32-36); Mean Corpuscular Hemoglobin 33.5 pg (27.0-31.0); Mean Corpuscular Volume 95.5 fL (78.0-102.0); Nucleated Red Blood Cells Absolute Auto 0.00 K/mm3 (0.00-0.00); Nucleated Red Blood Cells Perc 0.0 % (0-0.0); Platelet Count Result 219 K/mm3 (150-420); Red Blood Count 4.71 M/mm3 (4.70-6.10); White Blood Count 6.2 K/mm3 (4.8-10.8)
[2025-08-17 14:32] LABS: INR 1.0; Partial Thromboplastin Time 24.5 Sec (23.9-30.70); Prothrombin Time 11.4 Seconds (9.50-12.1)
[2025-08-17 14:34] LABS: Alanine Aminotransferase 22 U/L (6-50); Albumin Level 4.3 g/dL (3.5-5.1); Alkaline Phosphatase 62 U/L (38-126); Anion Gap 7 mmol/L (4-12); Aspartate Amino Transferase 27 U/L (17-59); Bilirubin,Total 1.8 mg/dL (0.2-1.3); Blood Urea Nitrogen 12 mg/dL (9-20); Calcium 9.1 mg/dL (8.4-10.2); Carbon Dioxide 30 mmol/L (22-30); Chloride 101 mmol/L (98-107); Estimated CRCL calculation 65 ml/min; Estimated Glomerular Filt Rate > 60; Glucose 107 mg/dL (65-110); Lipase 53 U/L (23-300); Osmolality Calculated 285 mOsm/kg (285-295); Potassium 4.4 mmol/L (3.4-5.0); Sodium 138 mmol/L (137-145); Total Protein 7.7 g/dL (6.3-8.2)
[2025-08-17 15:16] VITALS: BP 129/87; PULSE 74; RESP 20; O2SAT 99
[2025-08-17 16:10] VITALS: BP 154/84; PULSE 75; RESP 20; O2SAT 95
== END 2025-08-17 16:10 | disposition short-term general hospital (02) ==
PROVIDERS: Emergency Provider Emergency Medicine; PCP Internal Medicine
DX: N20.1 Calculus of ureter (principal)
CPT/HCPCS: 36415; 74176; 80053; 81001; 83690; 85025; 85610; 85730; 99284

== ENCOUNTER 2025-08-17 17:38 | Observation (INO) | payer MEDICARE, SELFPAY ==
--- NOTE | ~2025-08-17 | XR_ITS ---
EXAMINATION: XR retrograde pyelo w/stent LT DATE: 08/18/2025 08:21 INDICATION: Left flank pain and left-sided obstructive uropathy TECHNIQUE: 182 images of the abdomen and pelvis were obtained during procedure performed by Dr. Ham. Radiologist was not present for the imaging or procedure. The amount of fluoroscopy time used during this procedure was 1.8 minutes. Total DAP was 2.15 mGym^2. COMPARISON: CT dated 08/17/2025 FINDINGS: The left ureteral stone seen on prior CT is unable to be definitively identified on the distribution operation supervisor images. Subsequent images demonstrate cannulation and retrograde contrast injections into the left ureter and renal collecting system. Subsequent images demonstrate a wire advanced into upper pole calyx of the left kidney which is subsequently replaced by a left intraureteral stent with loops formed in the upper pole calyx. Contrast projecting over the region of the left ureteropelvic junction. IMPRESSION: 1. Fluoroscopy utilized during right ureteral stent placement. The left ureteral stone identified on prior CT is unable be identified and have either been passed, extracted or of insufficient size and attenuation to be visible by fluoroscopy. See procedure note for further detail. 2. Suggestion of small amount of extravasated extraluminal contrast in the region of the left ureteropelvic junction. Reviewed, dictated and finalized at location A. IMPRESSION: 1. Fluoroscopy utilized during right ureteral stent placement. The left uretera l stone identified on prior CT is unable be identified and have either been pas sed, extracted or of insufficient size and attenuation to be visible by fluoros copy. See procedure note for further detail. 2. Suggestion of small amount of extravasated extraluminal contrast in the akua on of the left ureteropelvic junction.
--- NOTE | ~2025-08-17 | CT_ITS ---
Exam: CT abdomen and pelvis without contrast Clinical History: [Evaluate for stone ] Comparison: [CT abdomen and pelvis 08/17/2025]; retrograde pyelogram the left stent 08/18/2025 Technique: Multiple axial CT images of the abdomen and pelvis were obtained without IV contrast. Sagittal and coronal reformatted images were obtained. FINDINGS: Lung bases: [Small to moderate-sized patchy opacities in the lower lungs. ] Liver: [ No mass.] [ No intrahepatic biliary duct dilatation.] Gallbladder: Surgically absent. Common bile duct: [ Normal caliber.] [ No stones.] Spleen: [ Within normal limits.] Pancreas: [ No mass. No pancreatic fluid collection.] Adrenals: [ No masses.] Kidneys: [ No masses. No hydronephrosis.] Left-sided double-J ureteral stent with the proximal loop in the left superior pole calyx and the distal loop in the bladder. Small amount of hyperdense material in the left pelvocalyceal system. Small amount of hyperdense material in the left perinephric space. Small amount of fat stranding about the left ureteral stent. Lymph nodes: [ No adenopathy in the abdomen or pelvis.] Stomach, small bowel and colon: [ No bowel wall thickening or obstruction.] Diverticulosis. Peritoneum cavity: [ No mesenteric fat stranding or fluid.] Bladder: Moderate concentric thickening of the naranjo of the mildly distended bladder. Moderate amount of air in the bladder. Osseous structures: [ No acute fracture or destructive lesion.] [ Multilevel degenerative change in the visualized spine.] Abdominal aorta: [ No aneurysm.] Additional findings: [ None of significance.] IMPRESSION: 1. New left-sided double-J ureteral stent with the proximal loop in the left superior pole calyx and the distal loop in the bladder. 2. Small amount of hyperdense material in the left perinephric space. Differential includes contrast or hemorrhage. Correlate clinically. A short-term follow-up CT study is recommended. 3. Small amount of fat stranding about the left ureter. 4. Moderate concentric thickening of the naranjo of the mildly distended bladder. Differential includes incomplete bladder wall distention versus cystitis. 5. Moderate amount of contrast and air in the bladder. The air in the bladder may be due to recent instrumentation. Cystitis is possible. 6. Diverticulosis. 7. Cholecystectomy. Winter, the nurse taking care of the patient, was notified about the findings on 08/18/2025 at 10:35 AM eastern standard time by Dr. Delgadillo, Read back occurred. Reviewed, dictated and finalized at location Q. IMPRESSION: 1. New left-sided double-J ureteral stent with the proximal loop in the left díaz perior pole calyx and the distal loop in the bladder. 2. Small amount of hyperdense material in the left perinephric space. Different ial includes contrast or hemorrhage. Correlate clinically. A short-term follow- up CT study is recommended. 3. Small amount of fat stranding about the left ureter. 4. Moderate concentric thickening of the naranjo of the mildly distended bladder. Differential includes incomplete bladder wall distention versus cystitis. 5. Moderate amount of contrast and air in the bladder. The air in the bladder m ay be due to recent instrumentation. Cystitis is possible. 6. Diverticulosis. 7. Cholecystectomy. Winter, the nurse taking care of the patient, was notified about the findings on 08/18/2025 at 10:35 AM eastern standard time by Dr. Delgadillo, Read back occurred.
[2025-08-17 17:33] VITALS: BMI 28.0
--- NOTE | 2025-08-17 17:33 | ADMGEN ---
This patient, MANDI KOEHLER, was admitted to 2 Medical Room 261-01. Patient/family oriented to hospital policies and general routines including ID bracelet, bed and alarms, visiting hours, pain management, procedures, bathroom and other care routines, personal items, smoking policy, room service/diet, and visiting hours. Direct admit from [place] Information on how to activate the Rapid Response Team has been discussed. Patient/Family are encouraged to report perceived risks to care and to ask questions if they do not understand what they are told or what they should do.
--- NOTE | 2025-08-17 17:56 | PM.IMHP ---
H&P: HPI History of Present Illness Date/Time: 08/17/25 17:56 PMFSH Family History Family History (Updated 08/17/25 @ 17:43 by Ping Conway RN) Father Bladder cancer Sibling Thyroid cancer Social History Social History Smoking status: Never smoker Second hand tobacco smoke exposure: No Alcohol intake: never Substance use: never Lack of Transportation: No Lack of Food: Never True Current Housing: I Have Housing Concerned About Future Housing: No Difficulty Paying Gas/Electric Bills: No Difficulty Paying for Meds: No Currently Unemployed: No Education: Bachelor's Degree Difficulty w/ Childcare or Family Care: No Spiritual care concerns: No Meds Home Medications and Allergies Home Medications ?Medication ?Instructions ?Recorded ?Confirmed ?Type diphenoxylate-atropine 2.5 1 tablet PO QID PRN diarrhea #10 08/02/24 08/02/24 Rx mg-0.025 mg tablet (Lomotil) tabs tamsulosin 0.4 mg capsule 0.4 mg PO DAILY #90 caps 10/31/24 Rx atorvastatin 20 mg tablet See Rx Instructions .Route 06/13/25 Rx .COMPLEX #30 tabs dutasteride 0.5 mg capsule See Rx Instructions .Route 06/13/25 Rx .COMPLEX #30 caps lisinopril 5 mg tablet See Rx Instructions .Route 06/13/25 Rx .COMPLEX #30 tabs Allergies Allergy/AdvReac Type Severity Reaction Status Date / Time No Known Allergies Allergy Verified 08/17/25 14:41
[2025-08-17 19:35] VITALS: BP 121/77; PULSE 76; RESP 16; TEMP 36.8; O2SAT 98
--- NOTE | 2025-08-17 20:10 | P.HP_ITS ---
H&P: HPI History of Present Illness Date/Time: 08/17/25 20:10 Chief Complaint: Left flank pain, obstructive uropathy due to proximal ureteral stone Narrative: Patient is a 74 year old male presenting for admission under hospitalist care for management of a left-sided kidney stone, with planned urology evaluation tomorrow. Earlier today patient experienced acute onset severe left flank pain lasting about 45 minutes, which prompted evaluation at [facility]. Pain improved spontaneously and he did not require analgesic medications at ER in [place]. He denies current abdominal pain and has minimal to no tenderness with palpation or percussion over the left flank on exam. No dysuria, fever, chills, nausea, or vomiting reported during the encounter. He reports a prior history of kidney stone approximately 15 years ago; otherwise generally healthy. Urology was consulted by phone from ER at [facility] and he advised patient could go home with plan for outpatient follow up but he would most likely end up right back in ER. Urology stated that if patient transferred they would plan to place a stent tomorrow for management of left proximal obstructing ureteral stone without UTI. Past medical history significant for hyperlipidemia, hypertension, and benign prostatic hypertrophy (per patient medication indications). Denies diabetes. Surgical history includes remote gallbladder removal (laparoscopic cholecystectomy) approximately 40 years ago, and prior broken elbow (details not specified). No known drug allergies. He received concurrent COVID and influenza vaccinations approximately 2?3 weeks prior. Plan discussed includes NPO after midnight and IV fluids overnight with Urology consultation and probable procedure tomorrow. Review of Systems Review of Systems: * Constitutional: Denies fever, chills, unintended weight loss. * Eyes: No visual changes reported. * ENT: No sore throat, nasal congestion reported. * Cardiovascular: No chest pain, palpitations, leg swelling. * Respiratory: No shortness of breath, cough; lungs clear to auscultation on brief exam. * Gastrointestinal: Denies current abdominal pain, nausea, vomiting; no reported changes in bowel habits. * Genitourinary: Reports recent severe left flank pain consistent with renal colic; currently improved. Denies dysuria; no hematuria reported in this interview. * Musculoskeletal: Denies joint swelling; history of prior elbow fracture (remote). * Skin: Denies rashes, cuts, wounds, or signs of infection. * Neurologic: No focal deficits reported; no headache, dizziness. * Endocrine: Denies history of diabetes. * Hematologic/Lymphatic: No easy bruising or bleeding reported. * Allergic/Immunologic: No known drug allergies. * Psychiatric: Mood and affect appropriate; no acute concerns reported. All systems reviewed & are unremarkable except as noted in HPI and below PMFSH Family History Family History Father Bladder cancer Sibling Thyroid cancer Social History Social History Smoking status: Never smoker Second hand tobacco smoke exposure: No Alcohol intake: never Substance use: never Lack of Transportation: No Lack of Food: Never True Current Housing: I Have Housing Concerned About Future Housing: No Difficulty Paying Gas/Electric Bills: No Difficulty Paying for Meds: No Currently Unemployed: No Education: Bachelor's Degree Difficulty w/ Childcare or Family Care: No Spiritual care concerns: No Meds Home Medications and Allergies Home Medications ?Medication ?Instructions ?Recorded ?Confirmed ?Type diphenoxylate-atropine 2.5 1 tablet PO QID PRN diarrhe a #10 08/02/24 08/17/25 Rx mg-0.025 mg tablet (Lomotil) tabs Held on 08/17/25. Instructions: .Provider Order tamsulosin 0.4 mg capsule 0.4 mg PO DAILY #90 caps 08/17/25 Rx atorvastatin 20 mg tablet See Rx Instructions .Route 0 06/13/25 08/17/25 Rx .COMPLEX #30 tabs lisinopril 5 mg tablet See Rx Instructions .Route 0 06/13/25 08/17/25 Rx .COMPLEX #30 tabs Allergies Allergy/AdvReac Type Severity Reaction Status Date / Time No Known Allergies Allergy Verified 08/17/25 14:41 Vital Signs Vital Signs - 24 hr 08/17/25 19:35 Temperature 36.8 C Pulse Rate 76 Respiratory Rate 16 Blood Pressure 121/77 Pulse Oximetry 98 Exam Narrative: GENERAL: Well-appearing, well-nourished, and in no acute distress. HEAD: Normocephalic, atraumatic. ENT:? Mucous membranes moist. CHEST: Clear to auscultation.? No respiratory distress. HEART: Regular rate and rhythm. ? Normal peripheral pulses. ABDOMEN: Soft, nontender, nondistended. No significant CVA tenderness. EXTREMITIES: Normal range of motion. No peripheral edema. SKIN: Warm dry normal color NEURO: Alert and oriented x3. PSYCH: Normal mood and affect H&P: Results Labs Labs: w Lab Results 08/17/25 08/17/25 Range/Units 13:57 14:12 WBC 6.2 (4.8-10.8) K/mm3 RBC 4.71 (4.70-6.10) M/mm3 Hgb 15.8 H (12.4-15.3) g/dL Hct 45.0 (37.0-46.0) % MCV 95.5 (78.0-102.0) fL MCH 33.5 H (27.0-31.0) pg MCHC 35.1 (32-36) g/dL RDW 12.9 (11.6-14.4) % Plt Count 219 (150-420) K/mm3 MPV 9.5 (8.7-11.0) fl Immature Gran % (Auto) 0.3 H (0.0-0.0) % Neut % (Auto) 64.1 (50.0-70.0) % Lymph % (Auto) 22.9 (18.0-42.0) % [place] % (Auto) 10.3 (2.0-11.0) % Eos % (Auto) 1.1 (1.0-6.0) % Baso % (Auto) 1.3 H (0.0-1.0) % Lymph # (Auto) 1.42 (1.10-4.50) K/mm3 [place] # (Auto) 0.64 (0.10-0.90) K/mm3 Eos # (Auto) 0.07 (0.02-0.50) K/mm3 Baso # (Auto) 0.08 (0.00-0.10) K/mm3 Abs Immat Gran (auto) 0.02 H (0.00-0.00) K/mm3 Absolute Neuts (auto) 3.97 (1.70-7.20) K/mm3 Absolute Nucleated RBC 0.00 (0.00-0.00) K/mm3 Nucleated RBC % 0.0 (0-0.0) % PT 11.4 (9.50-12.1) Seconds INR 1.0 APTT 24.5 (23.9-30.70) Sec Sodium 138 (137-145) mmol/L Potassium 4.4 (3.4-5.0) mmol/L Chloride 101 (98-107) mmol/L Carbon Dioxide 30 (22-30) mmol/L Anion Gap 7 (4-12) mmol/L BUN 12 (9-20) mg/dL Creatinine 0.90 (0.7-1.3) mg/dL Estim Creat Clear Calc 65 ml/min Estimated GFR > 60 (59 - ) Glucose 107 (65-110) mg/dL Calculated Osmolality 285 (285-295) mOsm/kg Calcium 9.1 (8.4-10.2) mg/dL Total Bilirubin 1.8 H (0.2-1.3) mg/dL AST 27 (17-59) U/L ALT 22 (6-50) U/L Alkaline Phosphatase 62 (38-126) U/L Total Protein 7.7 (6.3-8.2) g/dL Albumin 4.3 (3.5-5.1) g/dL Lipase 53 (23-300) U/L Urine Color Yellow (Yellow) Urine Appearance Clear (Clear) Urine pH 5.5 (5.0-8.0) Ur Specific [place] 1.025 H (1.010-1.020) Urine Protein Trace H (Negative) Urine Glucose (UA) Negative (Negative) Urine Ketones Trace H (Negative) Ur Blood (Man) 3+ H (Negative) Urine Nitrate Negative (Negative) Urine Bilirubin Negative (Negative) Urine Urobilinogen 1.0 (0.2-1.0) mg/dL Leukocyte Esterase Rfl Negative (Negative) MADISYN/UL Urine RBC 21-50 H (0-2) /hpf Urine WBC 0-3 (0-3) /hpf Urine Bacteria Trace (None) /hpf Urine Mucus Few H /lpf Pulse Oximetry SpO2 results: 97-98% on room air Attestation: I personally reviewed and interpreted this pulse oximetry as follows: Interpretation: No need for supplemental oxygenation at this time Imaging CT scan - abdomen: Radiologist's impression: EXAMINATION: CT abdomen pelvis wo con, 08/17/2025 14:00 CDT HISTORY: left flank pain x1 hour COMPARISON: No comparisons available. TECHNIQUE: CT scan of the abdomen and pelvis was performed without IV contrast. One or more of the following dose reduction techniques were used: automated exposure control, adjustment of the mA and/or kV according to patient size, use of iterative reconstruction technique. Unless otherwise stated, incidental findings do not require dedicated follow up imaging FINDINGS: CT abdomen: LUNG BASES: The lung bases are clear. The visualized portions of the heart and pericardium are unremarkable. LIVER: Unremarkable, liver contours intact, no lesions. SPLEEN: Unremarkable, no splenomegaly. KIDNEYS: Right Kidney: Unremarkable. No calculi. No hydronephrosis. Left Kidney: Left kidney left hydronephrosis and hydroureter due to an obstructing proximal ureteral calculus measuring 2 x 4 x 4 mm. ADRENAL GLANDS: Unremarkable. PANCREAS: Unremarkable. GALLBLADDER/BILIARY: Post cholecystectomy. STOMACH AND ESOPHAGUS: Visualized stomach and esophagus within normal limits. BOWEL/MESENTERY: Moderate fecal content. Moderate diverticulosis. No colitis or acute diverticulitis. Appendix normal. Mesentery normal. Small bowel normal. ADENOPATHY/RETROPERITONEUM: No lymphadenopathy. AORTA/VASCULATURE: Normal caliber aorta. FREE FLUID OR FREE AIR: None. CT pelvis: SOLID ORGANS/REPRODUCTIVE: Unremarkable. BLADDER: Within normal limits. OSSEOUS STRUCTURES: No acute osseous abnormality.No suspicious lesions. OVERLYING SOFT TISSUES: Unremarkable. IMPRESSION: 1. Left-sided obstructive uropathy Reviewed, dictated and finalized at location P. Assessment and Plan Assessment and plan (1) Left ureteral calculus: Code(s): N20.1 - Calculus of ureter Status: Acute Assessment and Plan: -Obstructing proximal left ureteral stone -Urology consulted by [facility] ER and Dr. Forman indicated that patient would likely bounce back rather than pass stone -Dr. Forman stated they would consult and probably place stent on 08/18 if patient is transferred to [facility] -OBS admit accepted -NPO after midnight with IV fluids ordered -Morning labs ordered -No UTI on labs at prior ER (2) Obstructive uropathy: Code(s): N13.9 - Obstructive and reflux uropathy, unspecified Status: Acute Assessment and Plan: -See above (3) HTN (hypertension): Code(s): I10 - Essential (primary) hypertension Status: Chronic Assessment and Plan: -Blood pressure reasonable, continue home medication (4) HLD (hyperlipidemia): Code(s): E78.5 - Hyperlipidemia, unspecified Status: Chronic Assessment and Plan: -Continue home atorvastatin (5) BPH (benign prostatic hyperplasia): Code(s): N40.0 - Benign prostatic hyperplasia without lower urinary tract symptoms Status: Chronic Assessment and Plan: -Enlarged prostate noted on CT exam -Continue tamsulosin -Urology will consult and see patient on 08/18 Quality VTE Prophylaxis VTE prophylaxis: mechanical ordered If No VTE Prophylaxis Answer both mechanical and pharmacologic: Reason no pharmacologic proph: medical contraindication (Urologic procedure expected 08/18) Hospitalist MIPS Advance Care Plan I have confirmed that the patient's Advanced Care Plan is present, code status is documented, or surrogate decision maker is listed in patient medical record.: Yes Medication Reconciliation I have utilized all available resources to obtain, update and review the patients current medications (includes all prescriptions, OTC, herbals, cannabis, and nutritional supplements).: Yes
[2025-08-17 21:27] VITALS: BP 144/71; PULSE 61; RESP 18; TEMP 36.5; O2SAT 97
[2025-08-17] MEDS: SODIUM CHLORIDE 0.9% IV 1,000 ML 75 ML IV CONT (22:00)
[2025-08-18] VITALS (11 sets, daily range): BP systolic 120–166; BP diastolic 66–83; PULSE 55–76; RESP 12–18; TEMP 36.2–36.6; O2SAT 93–99
[2025-08-18 05:33] LABS: Hematocrit 42.9 % (42.0-52.0); Hemoglobin 15.3 g/dL (14.0-18.0); Immature Granulocyte Percent A 0.5 % (0-0.5); Lymphocytes Absolute Auto 2.30 K/mm3 (0.9-3.2); Mean Corpuscular HGB Conc 35.7 g/dl (32-36); Mean Corpuscular Hemoglobin 33.4 pg (26-34); Mean Corpuscular Volume 93.7 fl (80-100); Nucleated Red Blood Cells Absolute Auto 0.000 K/mm3 (0.0-0.012); Nucleated Red Blood Cells Perc 0.0 % (0.0-0.2); Platelet Count Result 200 k/mm3 (150-375); Red Blood Count 4.58 M/mm3 (4.6-6.20); White Blood Count 6.5 K/mm3 (4.5-10.0)
[2025-08-18 05:55] LABS: Alanine Aminotransferase 17 U/L (6-50); Albumin Level 3.7 g/dL (3.5-5.1); Alkaline Phosphatase 71 U/L (38-126); Anion Gap 7 mmol/L (4-12); Aspartate Amino Transferase 23 U/L (17-59); Bilirubin,Total 1.9 mg/dL (0.2-1.3); Blood Urea Nitrogen 12 mg/dL (9-20); Calcium 8.4 mg/dL (8.4-10.2); Carbon Dioxide 24 mmol/L (22-30); Chloride 105 mmol/L (98-107); Estimated CRCL calculation 77 ml/min; Estimated Glomerular Filt Rate > 60; Glucose 89 mg/dL (65-110); Magnesium 2.3 mg/dL (1.6-2.3); Potassium 4.0 mmol/L (3.4-5.0); Sodium 136 mmol/L (137-145); Total Protein 6.4 g/dL (6.3-8.2)
[2025-08-18] MEDS: LACTATED RINGERS 1,000 ML 30 ML IV CONT (07:00)
--- NOTE | 2025-08-18 07:20 | P.PNAN_ITS ---
Anes - Initial Pre Proc Eval Procedure: Operation Date: 08/18/25 07:30 Proposed Procedures p Cystoscopy Left Stent Placement - Yassine Ham MD Date/Time: 08/18/25 07:20 Surgeon: Sophie Aparicio MD Pre Op Diagnosis: Left kidney stone Patient Data Age: 75 Gender: M Height: 1.78 m Weight: 88.5 kg Last Vital Signs Temp 97.6 F 08/18/25 04:13 Pulse 67 08/18/25 04:13 Resp 18 08/18/25 04:13 BP 124/66 08/18/25 04:13 Pulse Ox 97 08/18/25 04:13 O2 Del Method Room Air 08/17/25 20:00 Allergies Allergy/AdvReac Type Severity Reaction Status Date / Time No Known Allergies Allergy Verified 08/17/25 14:41 Home Medications ?Medication ?Instructions ?Recorded ?Confirmed ?Type diphenoxylate-atropine 2.5 1 tablet PO QID PRN diarrhe a #10 08/02/24 08/17/25 Rx mg-0.025 mg tablet (Lomotil) tabs Held on 08/17/25. Instructions: .Provider Order tamsulosin 0.4 mg capsule 0.4 mg PO DAILY #90 caps 08/17/25 Rx atorvastatin 20 mg tablet See Rx Instructions .Route 0 06/13/25 08/17/25 Rx .COMPLEX #30 tabs lisinopril 5 mg tablet See Rx Instructions .Route 0 06/13/25 08/17/25 Rx .COMPLEX #30 tabs Laboratory Tests 08/18/25 04:44 WBC 6.5 K/mm3 (4.5-10.0) RBC 4.58 L M/mm3 (4.6-6.20) Hgb 15.3 g/dL (14.0-18.0) Hct 42.9 % (42.0-52.0) MCV 93.7 fl (80-100) MCH 33.4 pg (26-34) MCHC 35.7 g/dl (32-36) RDW 13.0 % (11.5-14.5) Plt Count 200 k/mm3 (150-375) MPV 9.9 fl (7.4-10.4) Immature Gran % (Auto) 0.5 % (0-0.5) Neut % (Auto) 51.9 % (45.5-73.1) Lymph % (Auto) 35.3 % (18.3-44.2) [place] % (Auto) 8.6 H % (2.6-8.5) Eos % (Auto) 2.2 % (0-4.4) Baso % (Auto) 1.5 H % (0.2-1.2) Lymph # (Auto) 2.30 K/mm3 (0.9-3.2) [place] # (Auto) 0.6 K/mm3 (0.1-0.6) Eos # (Auto) 0.1 K/mm3 (0-0.3) Baso # (Auto) 0.1 K/mm3 (0.0-0.1) Abs Immat Gran (auto) 0.03 K/mm3 (0.00-0.031) Absolute Neuts (auto) 3.4 K/mm3 (1.3-6.7) Absolute Nucleated RBC 0.000 K/mm3 (0.0-0.012) Nucleated RBC % 0.0 % (0.0-0.2) Sodium 136 L mmol/L (137-145) Potassium 4.0 mmol/L (3.4-5.0) Chloride 105 mmol/L (98-107) Carbon Dioxide 24 mmol/L (22-30) Anion Gap 7 mmol/L (4-12) BUN 12 mg/dL (9-20) Creatinine 0.74 mg/dL (0.7-1.3) Estim Creat Clear Calc 77 ml/min Estimated GFR > 60 (59 - ) Glucose 89 mg/dL (65-110) Calcium 8.4 mg/dL (8.4-10.2) Magnesium 2.3 mg/dL (1.6-2.3) Total Bilirubin 1.9 H mg/dL (0.2-1.3) AST 23 U/L (17-59) ALT 17 U/L (6-50) Alkaline Phosphatase 71 U/L (38-126) Total Protein 6.4 g/dL (6.3-8.2) Albumin 3.7 g/dL (3.5-5.1) Patient hx anesthesia problems: none Family hx anesthesia problems: none Results Review: All pre-operative results and documents have been reviewed as part of the pre- operative evaluation. [facility] Family History Family History Father Bladder cancer Sibling Thyroid cancer Social History Social History Smoking status: Never smoker Second hand tobacco smoke exposure: No Alcohol intake: never Substance use: never Lack of Transportation: No Lack of Food: Never True Current Housing: I Have Housing Concerned About Future Housing: No Difficulty Paying Gas/Electric Bills: No Difficulty Paying for Meds: No Currently Unemployed: No Education: Bachelor's Degree Difficulty w/ Childcare or Family Care: No Spiritual care concerns: No Anes - Eval Final PreProcedure Day of Procedure 08/18/25 07:20 Patient weight: normal Heart: regular rate and rhythm Lungs: clear to auscultation Airway: Mallampati scale class II Neurological: alert and oriented Last oral intake: >/= 8 hours ASA classification: III Emergent: no Anesthetic plan: proceed Anesthesia type and monitoring: general LMA and standard monitoring Results Review: All pre-operative results and documents have been reviewed as part of the pre- operative evaluation. Informed Consent: The patient's anesthetic plan and its attendant risks and benefits were discussed with the patient/family/POA. Questions were solicited and answers provided to the satisfaction of the patient/family/POA.
[2025-08-18] MEDS: ceFAZolin 2 GM in SODIUM CHLORIDE 0.9% IV 50 ML 100 ML IVPB (07:39)
--- NOTE | 2025-08-18 07:39 | P.CONUR_ITS ---
Assessment and Plan Assessment and plan (1) Left ureteral stone: Code(s): N20.1 - Calculus of ureter Status: Acute Assessment and Plan: Cystoscopy, left retrograde pyelogram, left ureteral stent placement. Definitive stone management to follow. We hopefully can try to get something arranged for this week Urology Consult Note HPI Date Seen: 08/18/25 Requesting Physician: Sophie Aparicio MD Primary Care Provider: Chaya Cormier MD Consult Narrative Narrative: Chinmay Phoenix is a 75 year old male with prior history of kidney stones. He has lasted a kidney stone was several decades ago and he passed a stone. He had acute onset left flank pain yesterday while going camping. This prompted a visit to the emergency room. By the time he got to the emergency room the pain is subsided. A CT scan was done which the radiologist read as a 2 x 4 mm left proximal stone. I reviewed the imaging myself in both the axial and coronal views. It appears to be more in the neighborhood of 6 mm. He was transferred to [facility] as the outside hospital had no urology coverage. He will undergo left ureteral stent placement to relieve any obstruction and then plan on definitive stone management in the near future. Hopefully would plan on lithotripsy of stone is visible but ureteroscopy as an option as well. He denies any fevers or chills. He denies any symptoms of urinary tract infection. Denies any nausea vomiting If all goes uncomplicated he can plan on discharge home today Review of Systems 2 Review of Systems: All systems reviewed & are unremarkable except as noted in HPI and below PMFSH Past Medical History Medical History (Updated 08/18/25 @ 07:42 by Yassine Ham MD) Left ureteral calculus Family History Family History Father Bladder cancer Sibling Thyroid cancer Social History Social History Smoking status: Never smoker Second hand tobacco smoke exposure: No Alcohol intake: never Substance use: never Lack of Transportation: No Lack of Food: Never True Current Housing: I Have Housing Concerned About Future Housing: No Difficulty Paying Gas/Electric Bills: No Difficulty Paying for Meds: No Currently Unemployed: No Education: Bachelor's Degree Difficulty w/ Childcare or Family Care: No Spiritual care concerns: No Meds Home Medications and Allergies Home Medications ?Medication ?Instructions ?Recorded ?Confirmed ?Type diphenoxylate-atropine 2.5 1 tablet PO QID PRN diarrhe a #10 08/02/24 08/17/25 Rx mg-0.025 mg tablet (Lomotil) tabs Held on 08/17/25. Instructions: .Provider Order tamsulosin 0.4 mg capsule 0.4 mg PO DAILY #90 caps 08/17/25 Rx atorvastatin 20 mg tablet See Rx Instructions .Route 0 06/13/25 08/17/25 Rx .COMPLEX #30 tabs lisinopril 5 mg tablet See Rx Instructions .Route 0 06/13/25 08/17/25 Rx .COMPLEX #30 tabs Allergies Allergy/AdvReac Type Severity Reaction Status Date / Time No Known Allergies Allergy Verified 08/18/25 07:21 Vital Signs Vital Signs - 24 hr 08/17/25 19:35 08/17/25 20:00 08/17/25 21:27 Temperature 98.2 F 97.7 F Pulse Rate 76 61 Respiratory Rate 16 18 Blood Pressure 121/77 144/71 H Pulse Oximetry 98 97 Oxygen Delivery Room Air 08/18/25 04:13 08/18/25 07:00 Temperature 97.6 F 97.1 F L Pulse Rate 67 66 Respiratory Rate 18 16 Blood Pressure 124/66 139/75 Pulse Oximetry 97 99 Oxygen Delivery Room Air Exam 2 Const: General: cooperative and healthy appearing HENMT: Head: normal to inspection Chest: Chest palpation & inspection: normal inspection of the chest Resp: Effort & Inspection: normal respiratory effort and able to speak in complete sentences Skin: General skin exam: normal color Neuro: General: oriented to person, oriented to place and oriented to time Extrem: General: normal to inspection Psych: Appearance: grossly normal Results Labs 08/18/25 04:44 08/18/25 04:44 Labs: Short CBC 08/18/25 Range/Units 04:44 WBC 6.5 (4.5-10.0) K/mm3 Hgb 15.3 (14.0-18.0) g/dL Hct 42.9 (42.0-52.0) % Plt Count 200 (150-375) k/mm3 BMP 08/18/25 04:44 Sodium 136 L Potassium 4.0 Chloride 105 Carbon Dioxide 24 BUN 12 Creatinine 0.74 Glucose 89 Calcium 8.4 Liver Function 08/18/25 Range/Units 04:44 Total Bilirubin 1.9 H (0.2-1.3) mg/dL AST 23 (17-59) U/L ALT 17 (6-50) U/L Alkaline Phosphatase 71 (38-126) U/L Albumin 3.7 (3.5-5.1) g/dL Imaging My impression: As per history of present illness
--- NOTE | 2025-08-18 07:43 | WPDHPUPDATE1 ---
History and Physical Update Update Date/Time: 08/18/25 07:43 History and Physical has been reviewed, including an updated exam of the patient. There are NO changes in the patient's condition. Risks, benefits, and alternatives have been discussed and questions answered. Patient agrees to proceed with procedure.
--- NOTE | 2025-08-18 08:26 | P.OP_ITS ---
Procedure Note - Detailed Date of Procedure 08/18/25 Pre-op Diagnosis Left ureteral stone Post-op Diagnosis Same Procedure Performed Cystoscopy, left retrograde pyelogram, left ureteroscopy, left stent placed Surgeon Yassine Ham MD Anesthesia General Indications This is a gentleman who was transferred from outside hospital. On CT scan he has a 7.5 mm mid ureteral stone with hydronephrosis. We planned intervention for the stone due to the size. Understands risks of bleeding, infection, damage to the urinary tract. Description of Procedure Nurse correctly identified. Informed consent obtained. From the operating room. He was given general anesthesia. Placed in lithotomy position. Prepped draped sterile fashion. Given appropriate perioperative antibiotics. Time-out performed. Cystoscopy revealed mild trabeculations. Otherwise a normal bl adder. Waiter[employer] radiograph did not reveal a visible stone. I did a gentle retrograde pyelogram on the right. I did not see a filling defect consistent with stone. He also did not have much hydronephrosis and contrast was seen to excrete. I reviewed the CT scan he definitely had a 7 mm proximal ureteral stone. At this point I decided to attempt ureteroscopy to hopefully clear his stone. I dilated the ureter the 810 dilator. A guidewire was placed into the kidney. I performed ureteroscopy. I was able to get to the mid ureter. But due to the small caliber of his ureter I was unable to get past the mid ureter. I placed a 2nd stiff guidewire into the kidney to try to brace the scope. I was still unable to advance the scope past the lower part of the mid ureter. At this point I decided to leave a stent. I placed 4.8 variable length stent proximal coil in the upper pole kidney. Distal coil in the bladder. The bladder was drained. He was awakened transferred to PACU in stable condition. Will plan on repeating CT scan to again evaluate for stone Implants Ureteral stent Estimated Blood Loss 1 Complications No immediate complications Condition Stable Disposition PACU
[2025-08-18] MEDS: fentaNYL CITRATE INJ (*CRX) 100 MCG/2 ML VIAL 25 MCG IV PUSH ×2 (09:14→09:19)
[2025-08-18] MEDS: ONDANSETRON INJ 4 MG/2 ML VIAL IV PUSH (10:05)
[2025-08-18] MEDS: HYDROcodone/acetaminophen (*CRX) 5-325 MG TABLET 1 TAB PO (10:10)
[2025-08-18] MEDS: ATORVASTATIN 20 MG TABLET PO (10:14)
[2025-08-18] MEDS: MORPHINE SULFATE (*CRX) 4 MG/ML INJ IV PUSH (10:53)
[2025-08-18] MEDS: KETOROLAC 30 MG/ML VIAL (*BKC) IV PUSH (13:25)
--- NOTE | 2025-08-18 14:17 | PM.DS ---
DS: Admitting Diagnosis Discharge Date 08/18/2025 Admitting Diagnosis ureteral stone with hydronephrosis DS: Discharge Diagnosis Discharge Diagnosis (1) Left ureteral calculus: Code(s): N20.1 - Calculus of ureter Status: Inactive Assessment and Plan: -Obstructing proximal left ureteral stone -Urology consulted by [facility] and Dr. Forman indicated that patient would likely bounce back rather than pass stone -Dr. Forman stated they would consult and probably place stent on 08/18 if patient is transferred to [facility] -OBS admit accepted -NPO after midnight with IV fluids ordered -Morning labs ordered -No UTI on labs at prior ER 08/18: Pt visited after uro performed Cystoscopy, left retrograde pyelogram, left ureteral stent placement. Pt in a considerable amount of pain. Morphine 4mg given acutely (Pyridium given already). Fatoumata, uro informed. He reviewed post procedure CT and reports WDL. Fatoumata to the bedside and said OK for toradol dose. Pt pain relieved with medication administration. Uro OK with discharge with definitive stone management to follow outpatient. (2) Obstructive uropathy: Code(s): N13.9 - Obstructive and reflux uropathy, unspecified Status: Acute Assessment and Plan: -See above (3) HTN (hypertension): Code(s): I10 - Essential (primary) hypertension Status: Chronic Assessment and Plan: -Blood pressure reasonable, continue home medication (4) HLD (hyperlipidemia): Code(s): E78.5 - Hyperlipidemia, unspecified Status: Chronic Assessment and Plan: -Continue home atorvastatin (5) BPH (benign prostatic hyperplasia): Code(s): N40.0 - Benign prostatic hyperplasia without lower urinary tract symptoms Status: Chronic Assessment and Plan: -Enlarged prostate noted on CT exam -Continue tamsulosin -Urology following Plan D/C with urology f/u DS: Summary Hospital Course Reason for hospitalization: ureteral stone with hydronephrosis Hospital Course: Patient is a 74 year old male that presented to [facility] with acute onset severe L flank pain x 45 minutes on 08/17. Pain improved spontaneously and he did not require analgesic medications at ER at [place]. He reports a prior history of kidney stone approximately 15 years ago; otherwise generally healthy. Past medical history significant for hyperlipidemia, hypertension, and benign prostatic hypertrophy (per patient medication indications). Urology was consulted by phone from ER at [facility] [facility] and he was advised patient could go home with plan for outpatient follow up but he would most likely end up right back in ER. Urology stated that if patient transferred they would plan to place a stent 08/18 for management of left proximal obstructing ureteral stone without UTI. Pt underwent cystoscopy with L retrograde pyelogram and L ureteral placement. Pt with some pain issues post procedure but received toradol which helped his pain significantly. Pt discharged with plans for close uro follow-up for stent removal. Status at Discharge Overall status at discharge: patient is back to baseline Time Spent with Patient Time attestation: Total time spent providing and/or coordinating discharge services: 30 Exam Const: General: comfortable and no acute distress Other: In acute distress of pain just following procedure, resolved. HENMT: Face/Nose/Sinus: Normal nares present Mouth: Yes moist mucous membranes Eyes: General: appearance normal, both eyes and all related structures Sclera: sclerae normal Neck: Neck: supple Resp: Effort & Inspection: normal respiratory effort Auscultation: clear to auscultation bilaterally Cardio: Rate: regular rate Rhythm: regular rhythm GI: Inspection: non-distended Skin: General skin exam: normal color and no rashes or lesions noted Neuro: Motor exam (neuro): Normal motor muscle tone present throughout Sensory Exam: normal sensation Extrem: General: normal to inspection Psych: Mental Status: mental status grossly normal Affect: normal affect DS: Data Data Completed and Pending Completed studies during hospitalization: labs, urine, CT Labs on day of discharge: Labs from last 24 hours 08/18/25 04:44 WBC 6.5 RBC 4.58 L Hgb 15.3 Hct 42.9 MCV 93.7 MCH 33.4 MCHC 35.7 RDW 13.0 Plt Count 200 MPV 9.9 Immature Gran % (Auto) 0.5 Neut % (Auto) 51.9 Lymph % (Auto) 35.3 [place] % (Auto) 8.6 H Eos % (Auto) 2.2 Baso % (Auto) 1.5 H Lymph # (Auto) 2.30 [place] # (Auto) 0.6 Eos # (Auto) 0.1 Baso # (Auto) 0.1 Abs Immat Gran (auto) 0.03 Absolute Neuts (auto) 3.4 Absolute Nucleated RBC 0.000 Nucleated RBC % 0.0 Sodium 136 L Potassium 4.0 Chloride 105 Carbon Dioxide 24 Anion Gap 7 BUN 12 Creatinine 0.74 Estim Creat Clear Calc 77 Estimated GFR > 60 Glucose 89 Calcium 8.4 Magnesium 2.3 Total Bilirubin 1.9 H AST 23 ALT 17 Alkaline Phosphatase 71 Total Protein 6.4 Albumin 3.7 Procedures/Treatments: Cystoscopy, left retrograde pyelogram, left ureteral stent placement Discharge Plan Discharge Attending physician on discharge: Mayo Garner Consulting providers: Dorcas Thrasher; Isma Goddard; Yassine Ham; Justino Martinez; Vinay Awad; Tyree Delgadillo; Chuck Gamino Discharging Clinician: Dorcas Thrasher Anticipated Discharge Date/Time: 08/18/25 15:00 Patient Disposition: Home Activity: march shower Diet: regular Discharge Instructions: 1. Take prescriptions as prescribed by urology as fell as a follow-up with Dr. Ham, his contact information is attached. Continue to check your blood pressure and blood sugar at home if applicable. Keep your scheduled appts with your primary care provider and any specialist that you may see. Return to the emergency department if you develop sudden shortness of breath, chest pain, a fever of greater than 101.5, or nausea, vomiting, abd pain, or diarrhea that does not go away. Follow-up with your primary care provider within 1-2 weeks, they will want to be updated on your inpatient stay in the hospital. Thank you for choosing [facility] for your healthcare needs. Patient Instructions: Antibiotic Form, Phenazopyridine (By mouth), Hydrocodone/Acetaminophen (By mouth), Kidney Stones (DC) Patient Language: Panamanian Stand Alone Forms: General Discharge Information Follow-up/Referrals: Yassine Ham MD [Physician, Urology] - 1 Week Discharge Medications: New oxybutynin chloride 5 mg Tablet 5 mg PO TID PRN (Reason: Abdominal Cramping) 14 Days Qty: 42 0RF hydrocodone-acetaminophen 5-325 mg Tablet 1 tablet PO Q4H PRN (Reason: Moderate Pain (4-6)) Qty: 10 0RF Continued diphenoxylate-atropine [Lomotil] 2.5-0.025 mg tablet 1 tablet PO QID PRN (Reason: diarrhea) Qty: 10 0RF tamsulosin 0.4 mg capsule 0.4 mg PO DAILY Qty: 90 0RF lisinopril 5 mg tablet See Rx Instructions .ROUTE .COMPLEX Qty: 30 0RF Dose Instruction: Take 1 tablet by mouth once daily Rx Instructions: Take 1 tablet by mouth once daily atorvastatin 20 mg tablet See Rx Instructions .ROUTE .COMPLEX Qty: 30 0RF Dose Instruction: Take 1 tablet by mouth once daily Rx Instructions: Take 1 tablet by mouth once daily Date of admission: 08/17/25 17:38 Primary Care Provider: Chaya Cormier Admitting Provider: Sophie Aparicio Attending physician on admission: Mayo Garner Condition: Stable Quality VTE Prophylaxis VTE prophylaxis: mechanical ordered Hospitalist MIPS Heart Failure (Exclusion) Patient has history of Heart Transplant or Left Ventricular Assistive Device?: No IF YES, STOP HERE Heart Failure (Qualifier) Patient has current or prior documentation of LVEF less than or equal to 40%, or mod/servere depressed LVSF?: No IF NO, STOP HERE
--- NOTE | 2025-08-19 07:51 | WPDANESPN ---
Anes - Prog Note Post-Op Date/Time: 08/19/25 07:51 Cardiovascular status: normal Respiratory status: normal Airway patency: baseline Mental status: baseline Post-Op hydration status: normal Vital Signs: Last Vital Signs Temp 97.8 F 08/18/25 13:40 Pulse 72 08/18/25 13:40 Resp 18 08/18/25 13:40 BP 120/67 08/18/25 13:40 Pulse Ox 97 08/18/25 13:40 O2 Del Method Room Air 08/18/25 09:25 O2 Flow Rate 10 08/18/25 08:40 Pain Score (VAS): 0/10 I/O: Intake & Output 08/18/25 08/18/25 08/19/25 15:59 23:59 07:59 Intake Total 250 Balance 250 Laboratory Tests 08/18/25 04:44 08/18/25 04:44 Post-procedural complaints: none Patient Feedback: Patient satisfied with anesthetic care.
== END 2025-08-18 14:53 | disposition home or self-care (01) ==
PROVIDERS: Nurse Practitioner; Urology; Admitting Provider General Practice; PCP Internal Medicine; Visit Provider Internal Medicine
PROC: (CPT 52352; principal; 2025-08-18 07:30)
DX: N20.1 Calculus of ureter (principal); N13.9 Obstructive and reflux uropathy, unspecified; Z87.442 Personal history of urinary calculi; E78.5 Hyperlipidemia, unspecified; I10 Essential (primary) hypertension; N40.0 Benign prostatic hyperplasia without lower urinary tract symptoms; Z80.52 Family history of malignant neoplasm of bladder; Z80.8 Family history of malignant neoplasm of other organs or systems
CPT/HCPCS: 52332; 36415; 74176; 74420; 80053; 83735; 85025; 99285; J0690; A9270; C1769; C2617; G0378; J1885; J2003; J2270; J2405; J2704; J3010; J7030; J7120; Q9966